=== PATIENT | female | born 1960 | race American Indian/Alaskan Native ===

== ENCOUNTER 2021-03-02 08:48 | Outpatient (CLI) | payer OTHER ==
--- NOTE | 2021-03-02 09:46 | XRay Report ---
Lumbar spine 4 views INDICATION: Back pain FINDINGS: Overall alignment appears normal. Advanced facet degenerative changes seen throughout. No c ompression fracture is identified. IMPRESSION: Degenerative change without acute findings. Right shoulder 4 views INDICATION: Shoulder pain FINDINGS: Degenerative change and glenohumeral joint and AC joint. No acute fracture dislocation. No soft tissue abnormality. Signer Name: Florentino Owen MD Signed: 03/02/2021 9:41 AM Workstation Name: [employer]
--- NOTE | 2021-03-02 09:49 | XRay Report ---
Bilateral hands-3 views each INDICATION: BILATERAL HAND PAIN R>L. COMPARISON: None. IMPRESSION: No clear evidence of an erosive or inflammatory arthropathy; however, there is advanced degenerative change at a few joints in the hands, namely the right index finger PIP joint and left gr eater than right CMC joints. Soft tissues are normal. Mild lateral angulation of the right index fi nger at the PIP joint. Otherwise normal alignment in the hands. Signer Name: Joey Magallon MD Signed: 03/02/2021 9:45 AM Workstation Name: [id number]
== END 2021-03-02 08:49 | disposition home or self-care (01) ==
LOC: XRAY 08:48
PROVIDERS: ATTEND Internal Medicine
DX: M19.011 Primary osteoarthritis, right shoulder (principal); M47.816 Spondylosis without myelopathy or radiculopathy, lumbar region; M79.641 Pain in right hand; M79.642 Pain in left hand
CPT/HCPCS: 72100